=== PATIENT | female | born 2000 | race Caucasian/White ===

== ENCOUNTER → 2018-05-18 | Outpatient (CLI) | payer OTHER | LOC: COL.RAD 12:27 | DX: R10.813 Right lower quadrant abdominal tenderness (principal) | CPT/HCPCS: Q9967 ==

== ENCOUNTER 2018-06-05 19:18 | Emergency (ER) | payer OTHER ==
[~2018-06-05] VITALS: Ht 170.2 cm; Wt 61.4 kg
[2018-06-05 19:22] VITALS: TEMP 97.5
[2018-06-05] MEDS ORDERED: ALDACTONE50 MG PO (20:25)
[2018-06-05] MEDS ORDERED: TRI-LINYAH 35 M1 TAB PO (20:26)
[2018-06-05] MEDS ORDERED: FOCALIN XR15 MG PO (20:26)
[2018-06-05 20:31] VITALS: BP 124/81; PULSE 82
== END 2018-06-05 20:30 | disposition home or self-care (01) ==
LOC: COL.ER 19:18
DX: S60.221A Contusion of right hand, initial encounter (principal); X50.1XXA Overexertion from prolonged static or awkward postures, initial encounter; Y93.45 Activity, cheerleading; Y92.009 Unspecified place in unspecified non-institutional (private) residence as the place of occurrence of the external cause